=== PATIENT | male | born 1985 | race Caucasian/White ===

== ENCOUNTER 2018-12-20 18:54 | Inpatient (IN) | payer SELFPAY ==
[2018-12-20] MEDS ORDERED: NORMAL SALINE 1000 ML 1,000 ML IV ONE ×2 (18:59→23:08)
[2018-12-20] MEDS ORDERED: DIPHENHYDRAMINE HCL 50 MG/ML VIAL IV ONE (19:00)
[2018-12-20 19:12] LABS: ABSOLUTE BASOPHILS # (AUTO) 0.1 10^3/uL (0.0-0.2); ABSOLUTE LYMPHOCYTES (AUTO) 1.4 10^3/uL (0.5-4.7); ABSOLUTE MONOCYTES (AUTO) 1.1 10^3/uL (0.1-1.4); ABSOLUTE NEUT (AUTO) 7.8 10^3/uL (1.7-8.2); BASOPHILS % (AUTO) 0.5 % (0-2); EOSINOPHILS % (AUTO) 0.1 % (0-6); HEMATOCRIT 40.2 % (37.9-51.0); HEMOGLOBIN 13.7 g/dL (13.5-17.0); LYMPHOCYTES % (AUTO) 13.7 % (13-45); MEAN CORPUSCULAR HEMOGLOBIN 29.5 pg (27.0-33.4); MEAN CORPUSCULAR HGB CONC 34.1 g/dL (32.0-36.0); MEAN CORPUSCULAR VOLUME 86 fl (80-97); PLATELET COUNT 233 10^3/uL (150-450); RED BLOOD COUNT 4.65 10^6/uL (4.35-5.55); RED CELL DISTRIBUTION WIDTH 13.1 % (11.5-14.0); SEGMENTED NEUTROPHILS % (AUTO) 74.7 % (42-78); TOTAL CELLS COUNTED % (AUTO) 100 %; WHITE BLOOD COUNT 10.5 10^3/uL (4.0-10.5)
[2018-12-20 19:21] LABS: INTERNATIONAL RATION (INR) 1.07; PARTIAL THROMBOPLASTIN TIME 27.5 SEC (23.5-35.8); PROTHROMBIN TIME 13.9 SEC (11.4-15.4)
[2018-12-20] MEDS ORDERED: LORAZEPAM INJ 2 MG/1 ML VIAL IM ONE (19:25)
--- NOTE | 2018-12-20 19:35 | ER Document Report ---
ED General - General Chief Complaint: Possible Overdose Stated Complaint: POSSIBLE OVERDOSE Time Seen by Provider: 12/20/18 18:57 Mode of Arrival: Stretcher Information source: Emergency Med Personnel TRAVEL OUTSIDE OF THE [place] IN LAST 30 DAYS: No - HPI Onset: Just prior to arrival Onset/Duration: Sudden Quality of pain: No pain Associated symptoms: Slow to respond Exacerbated by: Other - Patient to a lot of amphetamine today. Similar symptoms previously: No Recently seen / treated by doctor: No - Related Data Allergies/Adverse Reactions: No Known Allergies Allergy (Verified 12/20/18 19:01) Past Medical History - Social History Smoking Status: Current Every Day Smoker Chew tobacco use (# tins/day): No Frequency of alcohol use: Occasional Drug Abuse: Methamphetamine Family History: Other - unknown Patient has suicidal ideation: No Patient has homicidal ideation: No Renal/ Medical History: Denies: Hx Peritoneal Dialysis Review of Systems - Review of Systems -: Yes ROS unobtainable due to patient's medical condition - Patient is sleepy after receiving 50 mg of Benadryl and 6 mg of Ativan. Physical Exam - Vital signs Vitals: Resp Pulse Ox 19 99 12/20/18 18:56 12/20/18 18:56 Interpretation: Normal - General General appearance: Appears well, Alert - HEENT Head: Normocephalic, Atraumatic Eyes: Normal Pupils: PERRL - Respiratory Respiratory status: No respiratory distress Chest status: Nontender Breath sounds: Normal Chest palpation: Normal - Cardiovascular Rhythm: Regular Heart sounds: Normal auscultation Murmur: No - Abdominal Inspection: Normal Distension: No distension Bowel sounds: Normal Tenderness: Nontender Organomegaly: No organomegaly - Back Back: Normal, Nontender - Extremities General upper extremity: Normal inspection, Nontender, Normal color, Normal ROM, Normal temperature General lower extremity: Normal inspection, Nontender, Normal color, Normal ROM, Normal temperature, Normal weight bearing. No: Cortez's sign - Neurological Neuro grossly intact: Yes Cognition: Normal Orientation: AAOx4 [place] Coma Scale Eye Opening: Spontaneous [place] Coma Scale Verbal: Oriented [place] Coma Scale Motor: Obeys Commands [place] Coma Scale Total: 15 Speech: Normal Motor strength normal: LUE, RUE, LLE, RLE Sensory: Normal - Psychological Associated symptoms: Normal affect, Normal mood - Skin Skin Temperature: Warm Skin Moisture: Dry Skin Color: Normal Course - Vital Signs Vital signs: Temp Pulse Resp BP Pulse Ox 18 114/73 100 12/21/18 01:16 12/21/18 01:16 12/21/18 01:16 - Laboratory Result Diagrams: 12/20/18 18:57 12/20/18 21:01 Laboratory results interpreted by me: 12/20/18 12/20/18 12/20/18 21:01 21:01 23:00 Creatine Kinase 265 H Urine Protein 30 H Urine Ascorbic Acid 20 H Salicylates < 1.0 L Acetaminophen < 10 L - Diagnostic Test Radiology reviewed: Reports reviewed - EKG Interpretation by Me EKG shows normal: Sinus rhythm Rate: Normal Rhythm: NSR When compared to previous EKG there are: Previous EKG unavailable Additional EKG results interpreted by me: 12/20/18 20:57 Prolonged QT, Q wave in the inferior leads. No STEMI. - Transfer of Care Notes: 12/21/18 00:16 Patient will be admitted by the hospitalist Dr. Billy Byrd for observation. Critical Care Note - Critical Care Note Total time excluding time spent on procedures (mins): 45 Comments: Time was spent on multiple evaluations in the ED, review of labs and imaging study. Discharge - Discharge Clinical Impression: Methamphetamine abuse, episodic Altered mental status, unspecified Qualifiers: Altered mental status type: unspecified Qualified Code(s): R41.82 - Altered mental status, unspecified Condition: Stable Disposition: ADMITTED INPATIENT Admitting Provider: Carson (Hospitalist) Unit Admitted: Telemetry
[2018-12-20 19:44] LABS: CREATINE KINASE MB 1.82 ng/mL (<4.55); TROPONIN I < 0.012 ng/mL
--- NOTE | 2018-12-20 19:46 | RADIOLOGY REPORT (SQ) ---
EXAM DESCRIPTION: CHEST SINGLE VIEW COMPLETED DATE/TIME: 12/20/2018 7:28 pm REASON FOR STUDY: Drug Overdose COMPARISON: None. EXAM PARAMETERS: NUMBER OF VIEWS: One view. TECHNIQUE: Single frontal radiographic view of the chest acquired. RADIATION DOSE: NA LIMITATIONS: None. FINDINGS: LUNGS AND PLEURA: No pneumothorax. No consolidation or significant pleural effusion. MEDIASTINUM AND HILAR STRUCTURES: No masses. Contour normal. HEART AND VASCULAR STRUCTURES: Heart normal in size. Normal vasculature. BONES: No acute findings. HARDWARE: None in the chest. OTHER: No other significant finding. IMPRESSION: NO ACUTE RADIOGRAPHIC FINDING IN THE CHEST. TECHNICAL DOCUMENTATION: JOB ID: [id number] [id number] 2010 [employer]- All Rights Reserved Reading location - IP/workstation name: [facility]
[2018-12-20] MEDS ORDERED: ZIPRASIDONE MESYLATE INJ/PF 20 MG SDV IM ONE (20:05)
[2018-12-20 21:32] LABS: ALANINE AMINOTRANSFERASE 23 U/L (21-72); ALKALINE PHOSPHATASE 72 U/L (38-126); ANION GAP 7 (5-19); ASPARTATE AMINO TRANSFERASE 23 U/L (17-59); BILIRUBIN,DIRECT 0.3 mg/dL (0.0-0.4); BILIRUBIN,TOTAL 1.1 mg/dL (0.2-1.3); BLOOD UREA NITROGEN 17 mg/dL (7-20); CALCIUM 8.9 mg/dL (8.4-10.2); CARBON DIOXIDE 27 mmol/L (22-30); CHLORIDE 106 mmol/L (98-107); CREATINE KINASE 265 U/L (55-170); GLUCOSE 96 mg/dL (75-110); LIPASE 37.1 U/L (23-300); POTASSIUM 3.9 mmol/L (3.6-5.0); TOTAL PROTEIN 6.6 g/dL (6.3-8.2)
[2018-12-20] MEDS ORDERED: LORAZEPAM INJ 2 MG/1 ML VIAL IV ONE (23:08)
[2018-12-20 23:44] LABS: APPEARANCE,URINE CLEAR; BILIRUBIN,URINE NEGATIVE (NEGATIVE); COLOR,URINE DARK YELLOW; GLUCOSE, URINE NEGATIVE (NEGATIVE); KETONES,URINE NEGATIVE (NEGATIVE); LEUKOCYTE ESTERASE,URINE NEGATIVE (NEGATIVE); NITRITE,URINE NEGATIVE (NEGATIVE); PROTEIN,URINE 30 mg/dL (NEGATIVE); URINE SPECIFIC GRAVITY 1.022; UROBILINOGEN,URINE NEGATIVE mg/dL (<2.0)
[2018-12-20 23:53] LABS: URINE BARBITURATES SCREEN NEGATIVE; URINE BENZODIAZEPINES SCREEN NEGATIVE; URINE COCAINE SCREEN NEGATIVE; URINE METHADONE SCREEN NEGATIVE; URINE PHENCYCLIDINE SCREEN NEGATIVE
--- NOTE | 2018-12-20 23:57 | EKG REPORT ---
SEVERITY:- BORDERLINE ECG - SINUS RHYTHM BORDERLINE INFERIOR Q WAVES BORDERLINE PROLONGED QT INTERVAL : Confirmed by: Safia Sidhu 20-Dec-2018 23:56:23
[2018-12-21 00:13] LABS: URINE MARIJUANA (THC) SCREEN UNCONFIRMED POSITIVE
[2018-12-21 00:40] LABS: ACETAMINOPHEN < 10 ug/mL (10-30); ALCOHOL < 10 mg/dL (NONE DETECTED); SALICYLATE < 1.0 mg/dL (2.0-20.0)
[2018-12-21] MEDS ORDERED: LORAZEPAM INJ 2 MG/1 ML VIAL IV PRN (01:00)
[2018-12-21] MEDS ORDERED: IPRATROPIUM/ALBUTEROL 0.5-2.5 MG/3 ML AMPUL NEB PRN (01:01)
[2018-12-21] MEDS ORDERED: GLUCAGON,HUMAN RECOMB 1 MG INJ SUBCUT PRN (01:01)
[2018-12-21] MEDS ORDERED: DEXTROSE 40% GEL 15 GM TUBE PO PRN ×2 (01:01)
[2018-12-21] MEDS ORDERED: DEXTROSE 50%-WATER 25 GM/50 ML DISP.SYRIN IV PRN ×2 (01:01)
[2018-12-21] MEDS ORDERED: NORMAL SALINE 1000 ML 1,000 ML IV PRN (01:15)
[2018-12-21] MEDS ORDERED: BENZTROPINE MESYLATE INJ 2 MG/2 ML AMPULE IM ONE (01:30)
--- NOTE | 2018-12-21 04:23 | PDOC H&P ---
History of Present Illness Admission Date/PCP: 12/21/18 00:38 Patient complains of: Altered mental status History of Present Illness: CARRIE CAVAZOS is a 33 year old male who presents agitated after smoking methamphetamine. He is accompanied by a female printing services coordinator who is intoxicated and both are unable to give meaningful history. In the emergency room he is has severe agitation and dystonia he receives 6 mg of Ativan and referred to the hospitalist for admission. Patient has no evidence of acidosis, urine drug screen is positive for THC and amphetamine. He is referred to the hospitalist for admission. Past Medical History Medical History: Other - Unknown Social History Information Source: [facility] Records Smoking Status: Current Every Day Smoker Drugs: Marijuana, Other - Methamphetamine - Advance Directive Resuscitation Status: Full Code Family History Family History: Other - unknown Parental Family History Reviewed: No - Unobtainable Children Family History Reviewed: No - Unobtainable Sibling(s) Family History Reviewed.: No - Unobtainable Medication/Allergy Allergies/Adverse Reactions: No Known Allergies Allergy (Verified 12/20/18 19:01) Review of Systems ROS unobtainable: Due to mental status Physical Exam Vital Signs: Temp Pulse Resp BP Pulse Ox 17 127/70 H 100 12/21/18 03:34 12/21/18 03:34 12/21/18 03:34 Intake & Output 12/19/18 12/20/18 12/21/18 11:59 11:59 11:59 Intake Total 1000 Balance 1000 General appearance: PRESENT: disheveled, severe distress, well-developed, well- nourished. ABSENT: cooperative Head exam: PRESENT: atraumatic, normocephalic Eye exam: PRESENT: conjunctiva pink, EOMI, PERRLA. ABSENT: scleral icterus Ear exam: PRESENT: normal external ear exam Mouth exam: PRESENT: moist, tongue midline Neck exam: PRESENT: full ROM. ABSENT: carotid bruit, JVD, lymphadenopathy, meningismus, tenderness, thyromegaly Respiratory exam: PRESENT: clear to auscultation [place]. ABSENT: rales, rhonchi, wheezes Cardiovascular exam: PRESENT: tachycardia. ABSENT: diastolic murmur, rubs, systolic murmur Pulses: PRESENT: normal dorsalis pedis pul Vascular exam: PRESENT: normal capillary refill GI/Abdominal exam: PRESENT: normal bowel sounds, soft. ABSENT: distended, guard ing, mass, organolmegaly, rebound, tenderness Rectal exam: PRESENT: deferred Extremities exam: PRESENT: full ROM. ABSENT: calf tenderness, clubbing, pedal edema Neurological exam: PRESENT: alert, altered, oriented to person, reflexes normal, CN II-XII grossly intact. ABSENT: oriented to time, oriented to situation Psychiatric exam: PRESENT: agitated Focused psych exam: PRESENT: internal stimuli, restlessness Skin exam: PRESENT: dry, intact, warm. ABSENT: cyanosis, rash Results Laboratory Results: 12/20/18 18:57 12/20/18 21:01 12/20/18 12/20/18 12/20/18 18:57 18:57 21:01 WBC 10.5 RBC 4.65 Hgb 13.7 Hct 40.2 MCV 86 MCH 29.5 MCHC 34.1 RDW 13.1 Plt Count 233 Seg Neutrophils % 74.7 Lymphocytes % 13.7 Monocytes % 11.0 Eosinophils % 0.1 Basophils % 0.5 Absolute Neutrophils 7.8 Absolute Lymphocytes 1.4 Absolute Monocytes 1.1 Absolute Eosinophils 0.0 Absolute Basophils 0.1 Sodium Cancelled 140.0 Potassium Cancelled 3.9 Chloride Cancelled 106 Carbon Dioxide Cancelled 27 Anion Gap Cancelled 7 BUN Cancelled 17 Creatinine Cancelled 0.85 Est GFR ( Amer) Cancelled > 60 Est GFR (Non-Af Amer) Cancelled > 60 Glucose Cancelled 96 Calcium Cancelled 8.9 Total Bilirubin Cancelled 1.1 AST Cancelled 23 ALT Cancelled 23 Alkaline Phosphatase Cancelled 72 Total Protein Cancelled 6.6 Albumin Cancelled 4.0 Lipase Cancelled 37.1 TSH Urine Color Urine Appearance Urine pH Ur Specific [place] Urine Protein Urine Glucose (UA) Urine Ketones Urine Blood Urine Nitrite Ur Leukocyte Esterase Urine WBC (Auto) Urine RBC (Auto) 12/20/18 12/20/18 21:01 23:00 WBC RBC Hgb Hct MCV MCH MCHC RDW Plt Count Seg Neutrophils % Lymphocytes % Monocytes % Eosinophils % Basophils % Absolute Neutrophils Absolute Lymphocytes Absolute Monocytes Absolute Eosinophils Absolute Basophils Sodium Potassium Chloride Carbon Dioxide Anion Gap BUN Creatinine Est GFR ( Amer) Est GFR (Non-Af Amer) Glucose Calcium Total Bilirubin AST ALT Alkaline Phosphatase Total Protein Albumin Lipase TSH 1.86 Urine Color DARK YELLOW Urine Appearance CLEAR Urine pH 6.0 Ur Specific [place] 1.022 Urine Protein 30 H Urine Glucose (UA) NEGATIVE Urine Ketones NEGATIVE Urine Blood NEGATIVE Urine Nitrite NEGATIVE Ur Leukocyte Esterase NEGATIVE Urine WBC (Auto) 1 Urine RBC (Auto) 4 12/20/18 12/20/18 12/20/18 18:57 18:57 21:01 Creatine Kinase Cancelled 265 H CK-MB (CK-2) 1.82 Troponin I < 0.012 Impressions: Chest X-Ray 12/20/18 19:00 IMPRESSION: NO ACUTE RADIOGRAPHIC FINDING IN THE CHEST. Assessment and Plan - Diagnosis (1) Altered mental status, unspecified Qualifiers: Altered mental status type: unspecified Qualified Code(s): R41.82 - Altered mental status, unspecified Is this a current diagnosis for this admission?: Yes Plan: Severe encephalopathy with dystonia requiring IVC, benztropine and IV benzodiazepine. Continue supportive care in ICU setting (2) Methamphetamine abuse, episodic Is this a current diagnosis for this admission?: Yes Plan: Resulting in #1, ental health consult with mental status improves, supportive care - Time Time Spent with patient: 25-34 minutes - Inpatient Certification Medical Necessity: Need Close Monitoring Due to Risk of Patient Decompensation
[2018-12-21 05:43] LABS: ALANINE AMINOTRANSFERASE 26 U/L (21-72); ALBUMIN 3.6 g/dL (3.5-5.0); ALKALINE PHOSPHATASE 72 U/L (38-126); ASPARTATE AMINO TRANSFERASE 22 U/L (17-59); BILIRUBIN,DIRECT 0.2 mg/dL (0.0-0.4); BILIRUBIN,TOTAL 1.1 mg/dL (0.2-1.3); BLOOD UREA NITROGEN 16 mg/dL (7-20); CALCIUM 8.5 mg/dL (8.4-10.2); CARBON DIOXIDE 29 mmol/L (22-30); CHLORIDE 107 mmol/L (98-107); CREATINE KINASE 313 U/L (55-170); GLUCOSE 85 mg/dL (75-110); POTASSIUM 4.1 mmol/L (3.6-5.0)
[2018-12-21 05:48] LABS: ANION GAP 5 (5-19); SODIUM 141.3 mmol/L (137-145)
[2018-12-21] MEDS ORDERED: HEPARIN SOD (PORCINE) 5,000 UNIT/ML 1 ML SYRINGE SUBCUT SCH (06:00)
--- NOTE | 2018-12-21 06:51 | RADIOLOGY REPORT (SQ) ---
EXAM DESCRIPTION: CT HEAD WITHOUT IV CONTRAST COMPLETED DATE/TME: 12/21/2018 00:00 CLINICAL HISTORY: 33 years Male, Altered mental status / OD COMPARISON: None. TECHNIQUE: No contrast. Coronal and sagittal reformat. This exam was performed according to our departmental dose-optimization program, which includes automated exposure control, adjustment of the mA and/or kV according to patient size and/or use of iterative reconstruction technique. FINDINGS: No hemorrhage or infarct. No mass, mass effect, or midline shift. Brain and extra-axial structures appear intact. IMPRESSION: Normal CT of the head.
[2018-12-21 11:09] VITALS: BP 120/70
--- NOTE | 2018-12-22 05:32 | PSYCHOLOGICAL NOTE ---
Psych Note - Psych Note Date seen by psych provider: 12/21/18 Psych Note: Presenting Problem: 24 Hour IVC Petition, OD of methamphetamine. Girlfriend, Evangelina, at bedside. Patient stated he did not remember what happened. He was made aware report was he smoked meth yesterday morning and then was out in the pool all day. He was psychoeducated that meth dehydrates you and then he was in the sun all day so some of his labs were off (CK highest was 313). He denied SI attempt and admitted he has SI thoughts "sometimes, can happen any minute at any time," no action taken and denied current SI. He denied being involved with outpatient MH or SA services. UDS positive for meth and [place]. He ack nowledged meth was regular use prior to his child's (3 month old) and he has had 2 relapses now. He admitted regular use of cannabis. He reported 01/11/19 he has a meeting with his PO (has been on probation for 5-6 months due to meth). He pointed to the floor and looked at girlfriend asking where someone or something was. She stated it was never there. Patient thus seemed to be hallucinating but accepted information that it was not real. He denied wanting linkage to detox, treatment or outpatient services. He was made aware recommendation was for at the very least SA treatment on an outpatient level. Diagnosis: Meth OD Polysubstance Use Methamphetamine Use Disorder, Moderate to Severe Cannabis Use Disorder, Severe Impression/Plan: Patient is cleared from acute psychiatric services. Recommendation to rescind 24 Hour IVC petition. He denied current SI/HI and minimal observed psychosis (visual hallucinations, accepted information that is was not real). He admitted to hx of meth use, this being his second relapse in 3 months and regular use of cannabis. He denied wanting linkage to detox or any treatment. Patient encouraged to do outpatient SA treatment at the very least. Provided outpatient MH resource sheet which highlighted [facility] for linkage and assistance with treatment, as well as [facility] for outpatient SA/MH treatment (documented availability [id number] [phone], walk ins) and suggested walk in today. Consulted with Dr. Mendosa regarding the management and care of patient. Attending Hospitalist in agreement with recommendations.
--- NOTE | 2018-12-22 14:27 | PDOC DISCHARGE SUMMARY ---
General - Admit/Disc Date/PCP Admission Date/Primary Care Provider: 12/21/18 00:38 Discharge Date: 12/21/18 - Discharge Diagnosis (1) Altered mental status, unspecified Is this a current diagnosis for this admission?: Yes Summary: Patient was admitted with severe encephalopathy with dystonia requiring IVC secondary to amphetamine abuse. Head CT and laboratory evaluation were unremarkable. He was admitted for observation and management with use of benztropine and IV benzodiazepine. The following morning, patient is awake, orientated x 4, independently ambulatory, tolerating a regular diet, and with stable vital signs. Mental Health Services have rescinded his IVC status and patient is requesting to discharge home; he declines to meet with social media strategist. Patient is discharged to home in stable condition. He is advised to follow up with his PCP within 1 week. He is encouraged to establish with a mental health and/or substance abuse counselor. He has been provided resource information by the mental health team. He is instructed to return to the emergency department as needed for concerning symptoms. (2) Methamphetamine abuse, episodic Is this a current diagnosis for this admission?: Yes Summary: Resulting in #1 UDS is positive for THC and amphetamines. Patient and significant other confirm use. He was provided supportive care overnight. Mental Health services have met with the patient and cleared him for discharge. He is educated on the dangers of continued use and encouraged to seek assistance with detox/substance abuse through [facility] or the [facility] - Additional Information Resuscitation Status: Full Code Discharge Diet: Regular Discharge Activity: Activity As Tolerated, Balance Activity w/Rest History of Present Illness History of Present Illness: Per H&P by Dr. Byrd: CARRIE CAVAZOS is a 33 year old male who presents agitated after smoking methamphetamine. He is accompanied by a female vacuum furnace operator who is intoxicated and both are unable to give meaningful history. In the emergency room he is has severe agitation and dystonia he receives 6 mg of Ativan and referred to the hospitalist for admission. Patient has no evidence of acidosis, urine drug screen is positive for THC and amphetamine. He is referred to the hospitalist for admission. Past Medical History Physical Exam Vital Signs: Temp Pulse Resp BP Pulse Ox 98.0 F 80 18 120/70 100 12/21/18 11:06 12/21/18 11:06 12/21/18 11:06 12/21/18 11:06 12/21/18 11:06 Intake & Output 12/21/18 12/22/18 12/23/18 06:59 06:59 06:59 Intake Total 1000 Balance 1000 General appearance: PRESENT: no acute distress, disheveled, well-developed, well-nourished Head exam: PRESENT: atraumatic, normocephalic Eye exam: PRESENT: conjunctiva pink, EOMI, PERRLA. ABSENT: scleral icterus Ear exam: PRESENT: normal external ear exam Mouth exam: PRESENT: moist, tongue midline Neck exam: ABSENT: carotid bruit, JVD, lymphadenopathy, thyromegaly Respiratory exam: PRESENT: clear to auscultation [place]. ABSENT: rales, rhonchi, wheezes Cardiovascular exam: PRESENT: RRR. ABSENT: diastolic murmur, rubs, systolic murmur Pulses: PRESENT: normal dorsalis pedis pul Vascular exam: PRESENT: normal capillary refill GI/Abdominal exam: PRESENT: normal bowel sounds, soft. ABSENT: distended, guarding, mass, organolmegaly, rebound, tenderness Rectal exam: PRESENT: deferred Extremities exam: PRESENT: full ROM. ABSENT: calf tenderness, clubbing, pedal edema Musculoskeletal exam: PRESENT: ambulatory Neurological exam: PRESENT: alert, awake, oriented to person, oriented to place, oriented to time, oriented to situation, CN II-XII grossly intact. ABSENT: motor sensory deficit Psychiatric exam: PRESENT: appropriate affect, normal mood. ABSENT: homicidal i deation, suicidal ideation Skin exam: PRESENT: dry, intact, warm. ABSENT: cyanosis, rash Results Laboratory Results: 12/20/18 18:57 12/21/18 05:07 12/20/18 12/20/18 12/20/18 18:57 18:57 21:01 Creatine Kinase Cancelled 265 H CK-MB (CK-2) 1.82 Troponin I < 0.012 12/21/18 05:07 Creatine Kinase 313 H CK-MB (CK-2) Troponin I Impressions: Chest X-Ray 12/20/18 19:00 IMPRESSION: NO ACUTE RADIOGRAPHIC FINDING IN THE CHEST. Head CT 12/21/18 00:00 IMPRESSION: Normal CT of the head. Qualifiers - * PATIENT BEING DISCHARGED WITH ANY OF THE FOLLOWING DIAGNOSIS: No Acute Heart Failure - Is this a Heart Failure Patient?: No Plan Discharge Plan: Follow up with primary care provider within 1 week. Follow up with the [facility] or [facility] for substance abuse counseling/detox. Do NOT use illicit drugs. Return to the emergency department as needed for concerning symptoms. Time Spent: Greater than 30 Minutes
== END 2018-12-21 11:37 | disposition home or self-care (01) | DRG 918 ==
LOC: ER 18:54 → EH 12-21 00:38
PROVIDERS: ADMIT Internal Medicine; ATTEND Internal Medicine
DX: T43.621A Poisoning by amphetamines, accidental (unintentional), initial encounter (principal); G93.40 Encephalopathy, unspecified; F19.10 Other psychoactive substance abuse, uncomplicated; F17.200 Nicotine dependence, unspecified, uncomplicated; I45.81 Long QT syndrome; G24.9 Dystonia, unspecified; F12.20 Cannabis dependence, uncomplicated
CPT/HCPCS: 36415; 70450; 71045; 80053; 80307; 81001; 82550; 82553; 83690; 84443; 84484; 85025; 85610; 85730; 93005; 93010; G0480; J0515; J1200; J1644; J2060; J3486; J7030